=== PATIENT | female | born 1995 | race American Indian/Alaskan Native ===

== ENCOUNTER 2018-03-02 22:09 | Emergency (ER) | payer SELFPAY ==
[2018-03-02 22:19] VITALS: BP 134/94
[2018-03-02] MEDS ORDERED: DUONEB *Not for PRN Use IH ONE (22:19)
--- NOTE | 2018-03-02 23:02 | XRay Report ---
FINAL REPORT EXAM: XR CHEST ROUTINE 2V HISTORY: cough TECHNIQUE: Frontal and lateral chest x-ray. PRIORS: None. FINDINGS: Cardiac and mediastinal silhouette within normal limits. Lungs are normally expanded and grossly clear. No apparent pleural effusion or pneumothorax. Bony thorax grossly unremarkable. IMPRESSION: 1. No acute consolidation.
[2018-03-03] MEDS ORDERED: PROVENTIL IH ONE ×2 (00:26→00:31)
== END 2018-03-03 04:16 | disposition left against medical advice (07) ==
LOC: ED 22:09
DX: R06.02 Shortness of breath (principal); Z53.21 Procedure and treatment not carried out due to patient leaving prior to being seen by health care provider
CPT/HCPCS: 71046; 94640